=== PATIENT | male | born 1945 | race Caucasian/White ===

== ENCOUNTER 2021-08-15 20:15 | Inpatient (IN) | payer MEDICARE, BC ==
[2021-08-15] MEDS ORDERED: Sodium Chloride 0.9% 10 ML Syringe FLUSH PRN (20:32)
[2021-08-15] MEDS ORDERED: Sodium Chloride 0.9% 2.5 ML Syringe FLUSH PRN (20:32)
[2021-08-15] MEDS ORDERED: REMDESIVIR 200 MG in Sodium Chloride 0.9% 250 ML IV ONE (20:35)
[2021-08-15] MEDS ORDERED: Dexamethasone 10 MG/ML SDV IVPUSH ONE (20:35)
[2021-08-15] MEDS ORDERED: Acetaminophen 500 MG Tab PO PRN (20:36)
[2021-08-15] MEDS ORDERED: Ondansetron 4 MG/2 ML SDV IVPUSH ONE (20:38)
[2021-08-15 21:49] LABS: BLOOD UREA NITROGEN,BUN 16 mg/dL (7.0-18.0); CARBON DIOXIDE,CO2 27.7 mmol/L (21.0-32.0); CHLORIDE,CL 97 mmol/L (98-107); GLUCOSE RANDOM 106 mg/dL (74-106); LIPASE 158 U/L (73-393); POTASSIUM,K 3.5 mmol/L (3.5-5.1); SODIUM,NA 134 mmol/L (136-148)
[2021-08-15] MEDS ORDERED: Iopamidol 755 MG/ML 500 ML Multipack Bottle IVPUSH ONE (22:18)
[2021-08-16] MEDS ORDERED: Albuterol/Ipratropium 4 GM Inhalation Spray INH PRN (04:32)
[2021-08-16] MEDS ORDERED: Acetaminophen 325 MG Tab PO PRN (04:32)
[2021-08-16] MEDS: Enoxaparin 40 MG/0.4 ML Syringe SUBCUT SCH (05:08)
[2021-08-16 07:10] LABS: BLOOD UREA NITROGEN,BUN 15 mg/dL (7.0-18.0); CARBON DIOXIDE,CO2 28.4 mmol/L (21.0-32.0); CHLORIDE,CL 98 mmol/L (98-107); GLUCOSE RANDOM 167 mg/dL (74-106); POTASSIUM,K 3.7 mmol/L (3.5-5.1); SODIUM,NA 137 mmol/L (136-148)
[2021-08-16] MEDS ORDERED: Sodium Chloride 0.9% 2.5 ML Syringe FLUSH PRN (08:13)
[2021-08-16] MEDS ORDERED: Ondansetron 4 MG/2 ML SDV IVPUSH PRN (08:15)
[2021-08-16] MEDS: Benzonatate 100 MG Cap PO PRN (17:38)
[2021-08-16] MEDS: Dexamethasone 4 MG Tab PO SCH (19:56)
[2021-08-16] MEDS: REMDESIVIR 100 MG in Sodium Chloride 0.9% 100 ML IV SCH (19:56)
[2021-08-17] MEDS: Enoxaparin 40 MG/0.4 ML Syringe SUBCUT SCH (03:59)
[2021-08-17 12:40] LABS: BLOOD UREA NITROGEN,BUN 27 mg/dL (7.0-18.0); CARBON DIOXIDE,CO2 27.3 mmol/L (21.0-32.0); CHLORIDE,CL 101 mmol/L (98-107); GLUCOSE RANDOM 192 mg/dL (74-106); POTASSIUM,K 3.3 mmol/L (3.5-5.1); SODIUM,NA 140 mmol/L (136-148)
[2021-08-17] MEDS ORDERED: Pantoprazole 40 MG in Sodium Chloride 0.9% 10 ML IVPUSH SCH (13:00)
[2021-08-17] MEDS ORDERED: Calcium Carbonate 500 MG Tab.Chew PO PRN (13:00)
[2021-08-17] MEDS ORDERED: Alum Hydro/Mag Hydro/Simeth XS 15 ML, Lidocaine 2% 5 ML PO ONE ×2 (16:00)
[2021-08-17] MEDS ORDERED: Furosemide 40 MG/4 ML VIAL IVPUSH ONE (18:05)
[2021-08-17 18:33] LABS: BLOOD UREA NITROGEN,BUN 28 mg/dL (7.0-18.0); CARBON DIOXIDE,CO2 25.8 mmol/L (21.0-32.0); CHLORIDE,CL 100 mmol/L (98-107); GLUCOSE RANDOM 194 mg/dL (74-106); POTASSIUM,K 3.5 mmol/L (3.5-5.1); SODIUM,NA 142 mmol/L (136-148)
[2021-08-17] MEDS: REMDESIVIR 100 MG in Sodium Chloride 0.9% 100 ML IV SCH (20:22)
[2021-08-17] MEDS: Dexamethasone 4 MG Tab PO SCH (20:23)
[2021-08-18] MEDS: Enoxaparin 40 MG/0.4 ML Syringe SUBCUT SCH (04:07)
[2021-08-18] MEDS: Pantoprazole 40 MG Tab.CR PO SCH (08:25)
[2021-08-18 08:27] LABS: BLOOD UREA NITROGEN,BUN 27 mg/dL (7.0-18.0); CARBON DIOXIDE,CO2 29.6 mmol/L (21.0-32.0); CHLORIDE,CL 103 mmol/L (98-107); GLUCOSE RANDOM 166 mg/dL (74-106); POTASSIUM,K 3.9 mmol/L (3.5-5.1); SODIUM,NA 142 mmol/L (136-148)
[2021-08-18] MEDS: Furosemide 40 MG Tab PO SCH (11:30)
[2021-08-18] MEDS: Potassium Chloride 20 MEQ Tab.ER PO SCH (11:30)
[2021-08-18] MEDS ORDERED: Furosemide 40 MG/4 ML VIAL IVPUSH ONE (14:36)
[2021-08-18] MEDS: REMDESIVIR 100 MG in Sodium Chloride 0.9% 100 ML IV SCH (20:31)
[2021-08-18] MEDS: Dexamethasone 4 MG Tab PO SCH (20:31)
[2021-08-19] MEDS: Enoxaparin 40 MG/0.4 ML Syringe SUBCUT SCH (04:43)
[2021-08-19] MEDS: Benzonatate 100 MG Cap PO PRN ×2 (04:49→11:54)
[2021-08-19] MEDS: Pantoprazole 40 MG Tab.CR PO SCH (06:39)
[2021-08-19 07:48] LABS: BLOOD UREA NITROGEN,BUN 26 mg/dL (7.0-18.0); CARBON DIOXIDE,CO2 33.3 mmol/L (21.0-32.0); CHLORIDE,CL 102 mmol/L (98-107); GLUCOSE RANDOM 159 mg/dL (74-106); POTASSIUM,K 3.7 mmol/L (3.5-5.1); SODIUM,NA 143 mmol/L (136-148)
[2021-08-19] MEDS: Furosemide 40 MG Tab PO SCH (08:39)
[2021-08-19] MEDS: Allopurinol 300 MG Tab PO SCH (08:40)
[2021-08-19] MEDS: Potassium Chloride 20 MEQ Tab.ER PO SCH (08:40)
[2021-08-19] MEDS ORDERED: Iopamidol 755 MG/ML 500 ML Multipack Bottle IVPUSH ONE (15:12)
[2021-08-19] MEDS: REMDESIVIR 100 MG in Sodium Chloride 0.9% 100 ML IV SCH (20:17)
[2021-08-19] MEDS: Dexamethasone 4 MG Tab PO SCH (20:17)
[2021-08-20] MEDS: Enoxaparin 40 MG/0.4 ML Syringe SUBCUT SCH (03:51)
[2021-08-20] MEDS: Pantoprazole 40 MG Tab.CR PO SCH (06:30)
[2021-08-20] MEDS: Potassium Chloride 20 MEQ Tab.ER PO SCH (08:27)
[2021-08-20] MEDS: Allopurinol 300 MG Tab PO SCH (08:27)
[2021-08-20] MEDS: Furosemide 40 MG Tab PO SCH (08:27)
[2021-08-20 10:50] LABS: BLOOD UREA NITROGEN,BUN 24 mg/dL (7.0-18.0); CHLORIDE,CL 101 mmol/L (98-107); GLUCOSE RANDOM 219 mg/dL (74-106); SODIUM,NA 141 mmol/L (136-148)
[2021-08-20] MEDS: Benzonatate 100 MG Cap PO PRN (11:43)
[2021-08-20] MEDS: Dexamethasone 4 MG Tab PO SCH (19:48)
[2021-08-21] MEDS: Enoxaparin 40 MG/0.4 ML Syringe SUBCUT SCH (03:51)
[2021-08-21] MEDS: Pantoprazole 40 MG Tab.CR PO SCH (06:43)
[2021-08-21] MEDS: Furosemide 40 MG Tab PO SCH (09:17)
[2021-08-21] MEDS: Allopurinol 300 MG Tab PO SCH (09:17)
[2021-08-21] MEDS: Potassium Chloride 20 MEQ Tab.ER PO SCH (09:18)
== END 2021-08-21 14:45 | disposition home or self-care (01) | DRG 177 ==
LOC: MW.ED 20:15 → MW.MS 08-16 02:01
PROVIDERS: ADMIT Internal Medicine; ATTEND Internal Medicine
PROC: XW033E5 Introduction of Remdesivir Anti-infective into Peripheral Vein, Percutaneous Approach, New Technology Group 5 (ICD-10-PCS; principal; 2021-08-15)
PROC: 3E0333Z Introduction of Anti-inflammatory into Peripheral Vein, Percutaneous Approach (ICD-10-PCS; 2021-08-15)
PROC: 3E0DX3Z Introduction of Anti-inflammatory into Mouth and Pharynx, External Approach (ICD-10-PCS; 2021-08-16)
DX: U07.1 COVID-19 (principal); J96.01 Acute respiratory failure with hypoxia; J12.82 Pneumonia due to coronavirus disease 2019; K86.2 Cyst of pancreas; A08.39 Other viral enteritis; I25.10 Atherosclerotic heart disease of native coronary artery without angina pectoris; Z95.0 Presence of cardiac pacemaker; Z87.891 Personal history of nicotine dependence; Z79.899 Other long term (current) drug therapy
CPT/HCPCS: 36415; 71045; 71045-26; 71275; 71275-26; 74177; 74177-26; 74178; 74178-26; 76705; 76705-26; 80048; 80053; 80061; 81001; 82248; 82947; 83690; 83880; 84484; 85025; 85379; 85610; 93005; 96365; 96375; 99285-25; A9270-GY; C9113; J0248; J1100; J1650; J1940; J2405; J7050; J8540; Q9967; U0002

== ENCOUNTER 2022-08-18 07:34 | Observation (INO) | payer MEDICARE, BC ==
[2022-08-18] MEDS ORDERED: Sodium Chloride 0.9% 2.5 ML Syringe FLUSH PRN (07:42)
[2022-08-18] MEDS ORDERED: Sodium Chloride 0.9% 10 ML Syringe FLUSH PRN (07:42)
[2022-08-18 08:16] LABS: CARBON DIOXIDE,CO2 27.1 mmol/L (21.0-32.0); POTASSIUM,K 4.1 mmol/L (3.5-5.1)
[2022-08-18] MEDS ORDERED: Morphine 2 MG/ML SYRINGE IVPUSH ONE (11:24)
[2022-08-18] MEDS ORDERED: Iopamidol 755 Mg/ML 100 ML Bottle IVPUSH ONE (12:12)
[2022-08-18] MEDS ORDERED: Ondansetron 4 MG/2 ML SDV IVPUSH PRN (12:53)
[2022-08-18] MEDS ORDERED: Docusate Sodium 100 MG Cap PO PRN (12:53)
[2022-08-18 14:04] LABS: HEMOGLOBIN A1C 5.5 %
[2022-08-18] MEDS: Aspirin 81 MG Tab.Chew PO SCH (15:11)
[2022-08-18] MEDS: Acetaminophen 325 MG Tab PO PRN ×2 (15:11→20:00)
[2022-08-18] MEDS: Metoprolol Succinate 25 MG Tab.ER PO SCH (16:08)
[2022-08-18] MEDS ORDERED: Rosuvastatin 10 MG Tab PO SCH (21:00)
[2022-08-19] MEDS: Morphine 2 MG/ML SYRINGE IVPUSH PRN ×3 (02:51→08:54)
[2022-08-19 03:41] LABS: CARBON DIOXIDE,CO2 26.4 mmol/L (21.0-32.0); POTASSIUM,K 4.2 mmol/L (3.5-5.1)
[2022-08-19] MEDS: Aspirin 81 MG Tab.Chew PO SCH (08:43)
[2022-08-19] MEDS: Metoprolol Succinate 25 MG Tab.ER PO SCH (08:53)
== END 2022-08-19 12:55 | disposition home or self-care (01) ==
LOC: MW.ED 07:34 → MW.MS 11:55
PROVIDERS: ADMIT Internal Medicine; ATTEND Internal Medicine
DX: I11.0 Hypertensive heart disease with heart failure (principal); I50.32 Chronic diastolic (congestive) heart failure; R07.9 Chest pain, unspecified; K86.2 Cyst of pancreas; I25.10 Atherosclerotic heart disease of native coronary artery without angina pectoris; Z95.0 Presence of cardiac pacemaker; E78.2 Mixed hyperlipidemia; J98.11 Atelectasis; I08.3 Combined rheumatic disorders of mitral, aortic and tricuspid valves; Z79.899 Other long term (current) drug therapy; Z95.5 Presence of coronary angioplasty implant and graft; Z20.822 Contact with and (suspected) exposure to COVID-19
CPT/HCPCS: 36415; 71045; 71275; 80048; 80053; 80061; 83036; 83735; 83880; 84443; 84484; 85025; 93005; 93306; A9270; J2270; J3490; Q9967; U0002